=== PATIENT | female | born 1990 | race American Indian/Alaskan Native ===

== ENCOUNTER 2022-06-10 15:00 | Outpatient (CLI) | payer MEDICAID ==
[2022-06-10 16:05] VITALS: BP 110/68
[2022-06-10] MEDS ORDERED: LACTATED RINGERS 500 ML IV ONE (17:20)
== END 2022-06-10 17:14 | disposition home or self-care (01) ==
LOC: TRG 15:00 → APU 15:02 → TRG 17:14
PROVIDERS: ATTEND Obstetrics & Gynecology
DX: O34.33 Maternal care for cervical incompetence, third trimester (principal); Z3A.35 35 weeks gestation of pregnancy
CPT/HCPCS: 59025